=== PATIENT | female | born 1965 | race Asian ===

== ENCOUNTER 2024-08-09 23:47 | Emergency (ER) | payer OTHER, MEDICAID ==
[~2024-08-09] VITALS: Ht 172.7 cm; Wt 70.0 kg
[2024-08-09 23:49] VITALS: BP 137/79; PULSE 75; RESP 18; TEMP 36.6; O2SAT 99
[2024-08-10] MEDS ORDERED: METHOCARBAMOL 500MG TABLET PO ONE (00:30)
[2024-08-10] MEDS ORDERED: IBUPROFEN 600MG TABLET PO ONE (00:30)
== END 2024-08-10 04:39 | disposition home or self-care (01) ==
LOC: ER 23:47
DX: M79.672 Pain in left foot (principal); R07.89 Other chest pain; S09.90XA Unspecified injury of head, initial encounter; V89.2XXA Person injured in unspecified motor-vehicle accident, traffic, initial encounter; Y93.89 Activity, other specified; Y92.89 Other specified places as the place of occurrence of the external cause; Y99.8 Other external cause status
CPT/HCPCS: 71045; 73630; 99284